=== PATIENT | male | born 2000 ===

== ENCOUNTER 2019-12-04 23:40 | Observation (INO) | payer OTHER ==
[~2019-12-04] VITALS: Ht 177.8 cm; Wt 65.8 kg
[2019-12-05 00:01] LABS: BASOPHILS ABSOLUTE AUTO 0.05 K/mm3 (0.00-0.23); BASOPHILS PERCENT AUTO 0 % (0-2); EOSINOPHILS ABSOLUTE AUTO 0.03 K/mm3 (0.00-0.68); EOSINOPHILS PERCENT AUTO 0 % (0-6); Hematocrit 51.6 % (37.0-53.0); Hemoglobin 17.7 g/dL (13.5-17.5); IMMATURE GRAN ABSOLUTE AUTO 0.09 K/mm3 (0.00-0.10); IMMATURE GRAN PERCENT AUTO 1 % (0-1); LYMPHOCYTES PERCENT AUTO 24 % (21-46); MONOCYTES ABSOLUTE AUTO 0.81 K/mm3 (0.16-1.47); MONOCYTES PERCENT AUTO 5 % (4-13); Mean Corpuscular HGB Conc 34.3 g/dL (31.5-36.5); Mean Corpuscular Volume 88 fL (80-100); Mean Platelet Volume 9.5 fL (9.1-12.4); NEUTROPHILS ABSOLUTE AUTO 12.51 K/mm3 (1.96-9.15); NEUTROPHILS PERCENT AUTO 70 % (41-73); Platelet Count 406 K/mm3 (150-400); RDW Coefficient Variation 11.8 % (11.7-14.2); RDW Standard Deviation 38.2 fL (35.1-46.3); White Blood Cell Count 17.79 K/mm3 (4.00-11.30)
[2019-12-05 00:17] LABS: Alanine Aminotransfer (ALT/SGP 34 U/L (12-78); Albumin/Globulin Ratio 1.3 (0.8-1.8); Alk Phos 106 U/L (50-136); Anion Gap 11 mmol/L (6-16); Aspartate Aminotrans (AST/SGOT 35 U/L (12-37); Bilirubin, Total 0.4 mg/dL (0.1-1.0); Blood Urea Nitrogen 10 mg/dL (8-24); Bun/Creatinine Ratio 10.5 (12.0-20.0); CO2, Blood 21 mmol/L (21-32); Calcium, Blood 9.5 mg/dL (8.5-10.1); Chloride, Blood 108 mmol/L (98-108); Creatinine, Blood 0.95 mg/dL (0.60-1.20); Ethanol (Alcohol), Blood, Med 194 mg/dL; Globulin, Blood 3.9 g/dL (2.2-4.0); Glomerular Filtration Rate >60 (60-); Glucose, Blood 90 mg/dL (70-99); Potassium, Blood 3.8 mmol/L (3.5-5.5); Sodium, Blood 140 mmol/L (136-145); Total Protein, Blood 8.9 g/dL (6.4-8.2)
[2019-12-05 01:19] LABS: Source, Urine Clean Catch
[2019-12-05 01:21] LABS: Bilirubin, Urine Neg (Neg); Blood, Urine 2+ (Neg); Glucose Qualitative, Urine Neg (Neg); Ketones, Urine Neg (Neg); Leukocyte Esterase, Urine Neg (Neg); Nitrite, Urine Neg (Neg); Protein, Urine 1+ (Neg); Specific Gravity, Urine 1.005 (1.003-1.022); Urobilinogen, Urine NORM (Normal)
[2019-12-05 01:24] LABS: Appearance, Urine Clear (Clear); Color, Urine Yellow (P-Yellow)
[2019-12-05 01:28] LABS: Bacteria Few /hpf; Red Blood Cells, Urine 0-2 /hpf (0-2); Squamous Epithelial Cells Not Seen /hpf (Few); White Blood Cells, Urine 0-2 /hpf (0-5)
[2019-12-05 01:31] LABS: U Amphetamine Screen Not Detected; U Barbituate Screen Not Detected; U Benzodiazapine Screen Not Detected; U Cocaine Screen Not Detected; U Methadone Screen Not Detected; U Methamphetamine Screen Not Detected; U Opiates Screen Not Detected
[2019-12-05 01:32] LABS: U Buprenorphine Screen Not Detected; U Cannabinoids Screen DETECTED; U Oxycodone Screen Not Detected; U Phencyclidine Screen Not Detected; U Propoxyphene Screen Not Detected
[2019-12-05 05:13] LABS: BASOPHILS ABSOLUTE AUTO 0.05 K/mm3 (0.00-0.23); BASOPHILS PERCENT AUTO 0 % (0-2); EOSINOPHILS ABSOLUTE AUTO 0.02 K/mm3 (0.00-0.68); EOSINOPHILS PERCENT AUTO 0 % (0-6); Hematocrit 45.7 % (37.0-53.0); Hemoglobin 15.4 g/dL (13.5-17.5); IMMATURE GRAN ABSOLUTE AUTO 0.13 K/mm3 (0.00-0.10); IMMATURE GRAN PERCENT AUTO 1 % (0-1); LYMPHOCYTES ABSOLUTE AUTO 3.44 K/mm3 (0.84-5.20); LYMPHOCYTES PERCENT AUTO 12 % (21-46); MONOCYTES ABSOLUTE AUTO 2.36 K/mm3 (0.16-1.47); MONOCYTES PERCENT AUTO 8 % (4-13); Mean Corpuscular HGB 29.7 pg (26.0-34.0); Mean Corpuscular HGB Conc 33.7 g/dL (31.5-36.5); Mean Corpuscular Volume 88 fL (80-100); NEUTROPHILS ABSOLUTE AUTO 22.44 K/mm3 (1.96-9.15); NEUTROPHILS PERCENT AUTO 79 % (41-73); Platelet Count 332 K/mm3 (150-400); RDW Coefficient Variation 11.9 % (11.7-14.2); RDW Standard Deviation 38.7 fL (35.1-46.3); Red Blood Cell Count 5.19 M/mm3 (4.30-5.90); White Blood Cell Count 28.44 K/mm3 (4.00-11.30)
[2019-12-05 05:28] LABS: International Normalized Ratio 1.07; Prothrombin Time Results 11.4 Sec (9.7-11.5)
[2019-12-05 05:38] LABS: Alanine Aminotransfer (ALT/SGP 30 U/L (12-78); Albumin, Blood 4.1 g/dL (3.4-5.0); Albumin/Globulin Ratio 1.3 (0.8-1.8); Alk Phos 85 U/L (50-136); Anion Gap 9 mmol/L (6-16); Aspartate Aminotrans (AST/SGOT 37 U/L (12-37); Bilirubin, Total 0.6 mg/dL (0.1-1.0); Blood Urea Nitrogen 9 mg/dL (8-24); Bun/Creatinine Ratio 10.7 (12.0-20.0); CO2, Blood 24 mmol/L (21-32); Calcium, Blood 8.5 mg/dL (8.5-10.1); Chloride, Blood 108 mmol/L (98-108); Creatinine, Blood 0.84 mg/dL (0.60-1.20); Globulin, Blood 3.1 g/dL (2.2-4.0); Glomerular Filtration Rate >60 (60-); Glucose, Blood 109 mg/dL (70-99); Potassium, Blood 3.2 mmol/L (3.5-5.5); Sodium, Blood 141 mmol/L (136-145); Total Protein, Blood 7.2 g/dL (6.4-8.2)
--- NOTE | 2019-12-05 05:40 | NUR ---
SHIFT SUMMARY NEW ADMIT THIS AM. AAOX4. NPO. DISCOMFORT CONTROLLED WITH X1 NORCO THIS AM. NO NAUSEA/EMESIS. SCATTERED ABRASIONS TO BLE + BUE WITH DRESSINGS APPLIED IN ED. LUNG SOUNDS EVEN/UNLABORED. DENIES N/T ALL EXTREMITIES. IVF PER ORDERS. PT ORIENTED TO ROOM + CALL LIGHT USE. PT NOW RESTING IN BED.
--- NOTE | 2019-12-05 18:12 | NUR ---
DR MULLINS IN TO SEE PT.
--- NOTE | 2019-12-05 18:19 | NUR ---
SUMMARY NO ACUTE CHANGES T/O SHIFT. PT REPORTS SORE "EVERYWHERE" BUT PAIN MORE SEVERE IN LLE. MEDICATED T/O SHIFT PER ORDERS FOR PAIN AND PLACED ICE TO L KNEE TWICE DURING SHIFT FOR COMFORT. PT USING URINAL. DR MULLINS IN THIS EVENING TO SEE PT PER ORTHO CONSULT. CALL LIGHT IN REACH.
--- NOTE | 2019-12-06 05:09 | NUR ---
SHIFT SUMMARY LYING IN SEMI FOWLERS WITH EYES OPEN WHILE WATCHING TV. MRI SHEET FILLED OUT AND FAXED TO [facility] MRI FAX NUMBER. PAIN MANAGED WITH PRN NORCO. HAS BEEN PLEWASANT AND COOPERATIVE. DENIES FURTHER NEEDS OR WANTS AT THIS TIME. SAFETY MEASURES IN PLACE. WILL GIVE HAND OFF TO ONCOMING SHIFT USING SBAR DURING BEDSIDE REPORT.
--- NOTE | 2019-12-06 09:48 | NUR ---
DR BOB IN TO SEE PT.
--- NOTE | 2019-12-06 10:51 | NUR ---
PT BACK TO ROOM FROM MRI.
--- NOTE | 2019-12-06 10:52 | NUR ---
PT DECLINED OFFER OF ICE TO LLE.
--- NOTE | 2019-12-06 12:40 | NUR ---
L KNEE IMMOBILIZER PLACED, TOLERATED WELL.
[2019-12-06] MEDS ORDERED: OXYC5 PO (14:17)
--- NOTE | 2019-12-06 14:57 | NUR ---
DISCHARGE INSTRUCTIONS DISCUSSED WOUND CARE, ROM, IMPORTANCE OF MOBILIBIZING W/PT. PT APPEARED SLIGHTLY DISTRACTED, USING PHONE BUT DID ASK A FEW QUESTIONS. WILL REVISIT DC INSTRUCTIONS WHEN PT IS READY TO LEAVE UNIT. PT AWAITING ON ARRIVAL OF FAMILY FROM [place]. CALL LIGHT IN REACH.
--- NOTE | 2019-12-06 16:41 | NUR ---
DISCHARGED DC'D IV, CATHETER INTACT. MEDICATED PER ORDERS FOR 03/02 LLE PAIN. REVIEWED DC INSTRUCTIONS W/PT; VERBALIZED UNDERSTANDING. PROVIDED NONADHERENT DRESSINGS FOR ABRASIONS. PT LEFT UNIT IN WC W/POSSESSIONS AND DC PAPERWORK/PRESCRIPTIONS IN HAND. RIDE AWAITING OUTSIDE.
== END 2019-12-06 16:45 | disposition home or self-care (01) ==
LOC: ER 23:40 → SURS 23:41
PROVIDERS: Emergency Medicine; Surgery; ADMIT Internal Medicine
DX: S82.142A Displaced bicondylar fracture of left tibia, initial encounter for closed fracture (principal); S83.512A Sprain of anterior cruciate ligament of left knee, initial encounter; V03.90XA Pedestrian on foot injured in collision with car, pick-up truck or van, unspecified whether traffic or nontraffic accident, initial encounter; Y93.K1 Activity, walking an animal; Y92.410 Unspecified street and highway as the place of occurrence of the external cause
CPT/HCPCS: 36415; 70450; 71260; 72125; 73562-LT; 73562-RT; 73721; 74177; 80053; 81001; 85025; 85610; 85730; 86850; 86900; 86901; 90471; 90714; 96361; 96374-59; 96375; 96376; 97110; 97162; 99285-25; A9270-GY; G0378; G0480; J1170; J2405; J3010; J7030; J7120; Q9967